=== PATIENT | female | born 1995 | race Caucasian/White ===

== ENCOUNTER 2016-08-30 15:36 | Emergency (ER) | payer SELFPAY ==
[2016-08-30] MEDS ORDERED: NORMAL SALINE 10 ML SYRINGE FLUSH IVP PRN (15:44)
[2016-08-30 16:06] LABS: HEMATOCRIT 43.7 % (37.0-47.0); HEMOGLOBIN 14.8 g/dL (12.0-16.0); MEAN CORPUSCULAR HEMOGLOBIN 29.7 PG (27-31); MEAN CORPUSCULAR HGB CONC 33.9 g/dL (33-37); MEAN CORPUSCULAR VOLUME 87.6 FL (81-99); RED BLOOD COUNT 4.99 10^6/uL (4.20-5.40)
[2016-08-30 16:07] LABS: BASOPHILS # (AUTO) 0.03 10*3/UL; BASOPHILS % (AUTO) 0.4 % (0-1); EOSINOPHILS # (AUTO) 0.07 10*3/UL; EOSINOPHILS % (AUTO) 0.8 % (0-8); LYMPHOCYTES # (AUTO) 2.46 10*3/uL; MEAN PLATELET VOLUME 10.3 FL (7.4-12.2); MONOCYTES # (AUTO) 0.46 10*3/UL (0.3-0.8); MONOCYTES % (AUTO) 5.5 % (5-15); NEUTROPHILS # (AUTO) 5.26 10*3/UL; NEUTROPHILS % (AUTO) 63.5 % (50-80)
[2016-08-30 16:08] LABS: PLATELET MORPHOLOGY COMMENT NORMAL MORPHOLOGY (NORM); RBC MORPHOLOGY COMMENT NORMAL MORPHOLOGY (NORM); WBC MORPHOLOGY COMMENT NORMAL MORPHOLOGY (NORM)
--- NOTE | 2016-08-30 16:58 | PDOC ---
Female Problem HPI - General Chief Complaint: Vag Complaint/Bleed, <20WK IUP Stated Complaint: VAGINAL BLEEDING Date Seen by Provider: 09/06/16 Time Seen by Provider: 15:35 Source: POSITIVE: Patient Exam Limitations: POSITIVE: No limitations Nurse's Notes Reviewed & Considered: Yes - History of Present Illness Initial Comments: The patient is a 21-year-old who presents to the emergency department with complaints of vaginal bleeding. She reports that she had a positive home test last week after missing her menstrual.. She states that her last menstrual period was sometime early in July and she generally has very regular menstrual cycles. She states that this morning she started bleeding fairly heavily and is now bleeding at a rate consistent with her normal menstrual period type bleeding. She had some mild abdominal cramping earlier this afternoon however denies any pain currently. She denies any fevers or chills, nausea or vomiting or any other associated symptoms. She does have 2 children, her youngest delivery 11 months ago. 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 She states that she did not seek medical treatment for those. She states that her last child was delivered with the bundle clerk. She thinks that her blood type is O+ however she is not sure. - Patient Home Medications Home Medications: Home Medications NK [No Home Medications Reported] 08/30/16 - Patient Allergies Allergies/Adverse Reactions: Allergies Allergy/AdvReac Type Severity Reaction Status Date / Time No Known Allergies Allergy Verified 08/30/16 15:46 Past Medical History - heen HEENT History: Denies History Cardiovascular History: Denies History Respiratory History: Denies History Gastrointestinal History: Denies History Genitourinary History: Denies History Endocrine History: Denies History Musculoskeletal History: Denies History Prosthesis or Implant: No Neurological History: Denies History Blood Disorders: Denies History Psychiatric History: Denies History Female Reproductive History: Denies History LMP: [id number] Obstetrical History: Other (please comment) Additional Obstetrical History: 3 miscarriages : 6 Para: 2 Cancer History: Denies History In Past Year Been Physically Harmed or Verbally Threatened: No History of MDRO: No Tobacco Use: Never Smoker Alcohol Use: None Substance Use Type: None Previous Surgical History: No Significant Family History: No pertinent family hx Past Medical History Reviewed: Reviewed - No Changes ROS - Limitations ROS Limitations: No Limitations Constitution: DENIES: Chills, Fever Cardiovascular: REPORTS: Denies Cardiac Symptoms Respiratory: REPORTS: Denies Resp Symptoms Neurological: REPORTS: Denies Neuro Symptoms Gastrointestinal: DENIES: Vomitting Endocrine: REPORTS: Denies Symptoms Female Genitourinary Exam - General Appearance General Appearance: POSITIVE: Alert, Cooperative, No Acute Distress - HEENT HEENT: POSITIVE: Head Inspection Nml, Eyes Inspection Nml - Neck Neck: POSITIVE: Normal Inspection - Respiratory Respiratory: POSITIVE: No Respiratory Distress, Breath Sounds Normal - Cardiovascular Cardiovascular: POSITIVE: Regular Rate and Rhythm, Heart Sounds Normal - Abdomen Abdomen: POSITIVE: Soft, Non-Tender, No Distention - Genital / Rectal Pelvic Exam: POSITIVE: Other (She does have a fair amount of dark blood in the vaginal vault, cervix appears normal with no active hemorrhaging) - Skin Skin: POSITIVE: Intact, No Rash - Extremities Extremity: Normal ROM: (All Extremities), Normal Inspection: (All Extremities) Female Genitourinary Progress - Results Reviewed by me Lab Results Reviewed: Yes Lab Results:: Laboratory Results 08/30/16 Range/Units 15:50 WBC 8.29 (4.8-10.8) 10^3/uL RBC 4.99 (4.20-5.40) 10^6/uL Hgb 14.8 (12.0-16.0) g/dL Hct 43.7 (37.0-47.0) % MCV 87.6 (81-99) FL MCH 29.7 (27-31) PG MCHC 33.9 (33-37) g/dL RDW Std Deviation 41.9 (39-50) fL RDW Coeff of Brissa 13.3 (11.5-14.5) % Plt Count 265 (140-350) 10*3/uL MPV 10.3 (7.4-12.2) FL Immature Gran % (Auto) 0.1 (0-5) % Neut % (Auto) 63.5 (50-80) % Lymph % (Auto) 29.7 (10-50) % Upton % (Auto) 5.5 (5-15) % Eos % (Auto) 0.8 (0-8) % Baso % (Auto) 0.4 (0-1) % Immature Gran # (Auto) 0.01 10*3/UL Neut # (Auto) 5.26 10*3/UL Lymph # (Auto) 2.46 10*3/uL Upton # (Auto) 0.46 (0.3-0.8) 10*3/UL Eos # (Auto) 0.07 10*3/UL Baso # (Auto) 0.03 10*3/UL WBC Morphology Comment Normal morphology (NORM) Plt Morphology Comment Normal morphology (NORM) RBC Morph Comment Normal morphology (NORM) HCG, Quant < 2.39 mIU/ML Blood Type O POSITIVE - Patient's Progress MDM / ED Course: Initially blood work urinalysis and ultrasound was ordered. Pelvic exam revealed fair amount of blood in the vaginal vault with no active bleeding currently. Her blood work actually revealed a quantitative beta hCG less than 2. The ultrasound was subsequently canceled. At this point it seems most likely that she had a false positive test at home and that her current bleeding represents regular menstrual bleeding. She states that her menstrual cycles are very regular except when she is . She was told that at this time there is no evidence of , I cannot completely rule out a very early previously. She is currently hemodynamically stable and her blood type is O+. She was discharged home with advice to return to the emergency room she develops increased bleeding, increased pain, fever, any worsening or change in symptoms. She'll follow-up with her primary care provider if continued or heavy bleeding. - Consult Counseled: POSITIVE: Patient, Family (Paulino), RE: Lab Results, RE: DX, RE: Need for F/U Patient Care Time - Estimated PCT Patient Care Time (In Minutes): 30 Vital Signs - VS Reviewed Vital Signs Reviewed: Yes Discharge Clinical Impression: Vaginal bleeding Condition: Good Additional Instructions: Your quantitative test was negative here in the emergency department and this is the most sensitive test that we have. It therefore is most likely that the positive home test was falsely positive in that your menstrual cycle is irregular for some other reason. If you did have a very early it is currently not detectable currently. At this point I would recommend returning to the emergency room if you develop increased abdominal pain or cramping, fever, significantly heavy bleeding that is unusual from your norm, any worsening or change in symptoms. Recommend follow-up with primary care as needed. Your blood type is O+. Follow Up With: CODY NOBLES [Primary Care Provider] -
[2016-08-30 17:57] VITALS: RESP 16; TEMP 98.7
== END 2016-08-30 17:35 | disposition home or self-care (01) ==
LOC: ER 15:36
DX: N92.5 Other specified irregular menstruation (principal)
CPT/HCPCS: 84702; 85025; 86900; 86901; 87480; 87510; 87660; 99282